=== PATIENT | female | born 1965 | race Caucasian/White ===

== ENCOUNTER 2023-08-26 23:19 | Emergency (ER) | payer OTHER, SELFPAY ==
[2023-08-26 23:30] VITALS: BP 124/81
--- NOTE | 2023-08-26 23:44 | ED.GENMED ---
History of Present Illness
General
Chief Complaint: Allergic Reaction
Source: patient and spouse
Exam Limitations: none
Time Seen by Provider: 08/26/23 23:35
Nursing documentation reviewed up to this point in time: agreed with
Travel History
Have you had any contact with someone who has COVID-19?: No
Do you have any symptoms of coronavirus? Fever > 100 degrees, chills, cough, shortness of breath, sore throat, loss of taste or smell, muscle aches, or headache?: No
History of Present Illness
History of Present Illness:
58-year-old female with past medical history of migraines, GERD who presents to the emergency department accompanied by her for evaluation of possible allergic reaction. Patient reports that tonight at around 10 PM she was eating some
dessert�she says it was a peanut butter cake from [employer]�and a few minutes after finishing the cake she started to feel sensation of tingling in her tongue, sensation of swelling in her throat and she felt the need to consistently cough
or clear her throat. She says she started to notice that she was flushed in the face and she had nausea. She says that she was concerned that this was an allergic reaction and she took some Benadryl and decided to come to the emergency room to be
assessed. She says her symptoms have slightly improved but she still has sensation of throat swelling on arrival here. She no longer has any pruritus. She denies any vomiting despite feeling nauseated. She denies any shortness of breath or
wheezing. She denies any other complaints. She denies any history of prior allergies including to peanuts and says she has had peanuts multiple times in the past. She does report that she has had skin reactions to certain shampoos or skin
products in the past but never systemic allergic reaction.
Past History
Past History
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 Had a gamut of tests all neg. Had vestibular
rehab [id number]. 'It took about a year to feel normal again.' Still with residual right neck pain radiating to right arm needing injections and on Gabapentin 300 mg TID. Is followed by Dr. Huffman, neuro q 6 mos.), GERD (hasn't been bothering her
lately.), Psychiatric (period of anxiety needing Lorazepam [id number].), Other (propranolol also helps migraines, gets one a month, takes Tylenol. Had headache this a.m. and took Tylenol 1000 mg with relief of headache but no change in chest
symptoms.) and Other (had pneumonia once)
Social History
Tobacco: Non-smoker
Alcohol: None
Drug: None
Personal:
Living: with family
Employment: Not employed
Review of Systems
Review of Systems
All Other Systems: ROS reviewed and negative except as documented in HPI and ROS
Constitutional: Denies fever
EENT: Reports other (Sensation of throat swelling)
Respiratory: Reports cough; Denies trouble breathing
Cardiac: Denies chest pain or palpitations
ABD/GI: Reports nausea; Denies abdominal pain, vomiting or diarrhea
: Denies flank pain
Musculoskeletal: Denies neck pain or back pain
Skin: Reports other (Flushed)
Neurological: Denies dizzy or headache
Phy Exam
Physical Exam
Physical Exam:
General: Awake, alert, oriented x3; anxious but no acute distress
Head: Normocephalic, atraumatic; face is slightly flushed with splotches of erythema
Eyes: Conjunctiva normal, pupils equal round and reactive to light bilaterally
Throat: Airway intact, handling secretions, no swelling of the tongue or uvula, no stridor
Neck: Trachea midline, supple without meningismus
Lungs: Clear to auscultation bilaterally, no wheezing, rales, rhonchi
Heart: Regular rate and rhythm, no murmurs, gallops, or rubs
Abd: Soft, non distended, nontender
Neuro: Cranial nerves grossly intact, speech fluid
Skin: Face is flushed but no hives noted on the rest of her skin
Extremities: No edema in extremities, equal pulses in all extremities
Scores
Heart Failure Risk
Heart Failure Risk Score: Not Applicable
Heart Score for Chest Pain Patients
STEMI patient?: Not applicable
Withdrawal Assessment of Alcohol
Withdrawal Assessment Completed?: Not applicable
Course
Orders/Labs/Results
Orders:
Orders
08/26/23 23:36
EPINEPHrine PF [Adrenalin] 0.3 mg IM NOW STA
Famotidine [Pepcid] 20 mg IV NOW STA
MethylPREDNISolone PF [Solu-Medrol Pf] 125 mg IV NOW STA
08/26/23 23:58
Complete Blood Count/With Diff Urgent
Comprehensive Metabolic Panel Urgent
08/27/23 00:52
CT Head W/o Iv Contrast Urgent
Comment:
Reason For Exam: severe occipital headache
08/27/23 00:54
0.9% Sodium Chloride 500 ml [Nss] 500 ml IV BOLUS
Acetaminophen [Tylenol] 1,000 mg PO NOW STA
Diphenhydramine [Benadryl] 25 mg IV NOW STA
Metoclopramide [Reglan] 10 mg IV NOW STA
Abnormal Lab Results
08/26/23
23:58
MCH 32.6 H pg
(27.0-31.0)
BUN 18 H mg/dl
(7-17)
Glucose 115 H mg/dl
(70-99)
08/26/23 23:58
08/26/23 23:58
Vital Signs
Initial and Last Documented VS:
Initial Vital Signs
Temp Pulse Resp BP Pulse Ox
36.7 C 77 18 124/81 99
08/26/23 23:30 08/26/23 23:30 08/26/23 23:30 08/26/23 23:30 08/26/23 23:30
Last Documented Vital Signs
Temp Pulse Resp BP Pulse Ox
36.7 C 80 16 109/65 92
08/26/23 23:30 08/27/23 02:00 08/27/23 02:00 08/27/23 02:00 08/27/23 02:00
MDM/Problems Addressed
Differential Diagnosis Includes:
Anaphylaxis, angioedema, GERD
MDM/Problems Addressed:
58-year-old female presents for evaluation of possible allergic reaction�her chief complaint is sensation of throat tightness and sensation that she needs to constantly clear her throat. She has also had some flushing in her face and some nausea.
No hives. No vomiting. No abdominal cramping. No wheezing or shortness of breath. She has no prior history of allergies. Her vital signs are normal here. Exam as above. She took Benadryl prehospital and has some slight improvement but is done
persistent symptoms. Given sensation of throat swelling will give dose of IM epinephrine will also add some Pepcid and IV steroid. Will monitor here closely and reassess after the above.
Clinical reassessment symptoms resolved after ED treatment as above. No longer has any tightness in the throat or sensation of need to clear her throat. Facial flushing resolved. Will continue to monitor for any rebound symptoms here.
On reassessing the patient she tells me that she stood up to go to the bathroom and had acute onset of severe occipital headache. She says that she is starting to feel nauseated from it. She says that she has had migraines in the past but never
this intense and this sudden. On rechecking her vital signs her blood pressure is increased now to 160s systolic in the 110s. She has no focal neurologic deficits. Will send for CT head to rule out hemorrhage. Treat symptomatically.
Headache improved with ED treatment. CT head negative for acute pathology on my review awaiting final urology report. Patient 4 hours removed from ingestion�from allergic perspective stable for discharge with EpiPen and short course of steroids,
lathe sander referral. Will wait for final radiology report on CT head suspect that this was migraine or possibly side effect of epinephrine.
*Pulse Oximetry
Patient hypoxic: no
*Critical Care Note
Total Time (30-74mins, 75-104mins- exclusive of procedures): Not Applicable
Data Reviewed
Review of Other/Old Records Reveals: Labs and Records
Source: patient and spouse
ED Attending Note
-
Portions of this chart may have been created with voice recognition software.� Occasional wrong word or��sound alike� substitutions may have occurred due to the inherent limitations of voice recognition software.
Discharge Plan
Departure
Patient with high blood pressure during this ER visit?: No
Discharge Problem:
Allergic reaction
Instructions: Allergic Reaction ED
Prescriptions:
New
epinephrine [EpiPen 2-Baldomero] 0.3 mg/0.3 mL auto-injector
0.3 mg IM ONCE Qty: 2 0RF
prednisone 50 mg tablet
50 mg PO DAILY Qty: 4 0RF
No Action
propranolol 60 MG capsule,extended release 24 hr
60 mg PO QPM
gabapentin 300 MG capsule
300 mg PO TID
pantoprazole [Protonix] [address] for susp in packet
40 mg PO DAILY
acetaminophen [Tylenol Extra Strength] 500 MG tablet
1,000 mg PO Q6HPRN PRN (Reason: pain)
Patient Comments:
Pt took today only
folic acid 1 MG tablet
1 mg PO DAILY
Referrals:
Carmella Hemphill MD [Active] - Call in 1-3 days for appt ([facility])
Activity Restrictions/Additional Instructions:
Thank you for visiting the Emergency Department at [facility].
1. Please schedule a follow up appointment as directed. Call first thing tomorrow morning to make an appointment.
2. If indicated, please take your medications as instructed and indicated on discharge paperwork.
3. If any of your symptoms do not improve, or persist, or become more severe within 6-12 hours, please return to the emergency department for further care.
4. Please return to the emergency department if you develop a headache, neck pain/stiffness, fever greater than 100.4F, chest pain, shortness of breath, persistent nausea, vomiting, slurred speech, difficulty walking, numbness/tingling, weakness,
signs of infection or any other symptoms that are worrisome to you.
Please call [phone] if you have any questions.
Interventions
Interventions:
*Risk Screen - Suicide Last Done: 08/26/23 23:55
*General Assessment Last Done: 08/26/23 23:55
*Neglect/Abuse Screening Last Done: 08/26/23 23:55
ED- Cardiac Assessment Last Done: 08/26/23 23:55
ED- Pulmonary Assessment Last Done: 08/26/23 23:55
ED-Skin Assessment Last Done: 08/26/23 23:55
Discharge Date and Time
Print Language: [id number]
[2023-08-26] MEDS: ADRENALIN 0.299999999999999989 MG IM (23:45)
[2023-08-26] MEDS: PEPCID 20 MG IV (23:52)
[2023-08-26] MEDS: SOLU-MEDROL PF 125 MG IV (23:53)
[2023-08-26 23:54] VITALS: BMI 22.7
[2023-08-26 23:57] VITALS: BP 111/81
[2023-08-27] VITALS: BP 114/77
[2023-08-27 00:10] LABS: % Basophils 0.9 % (0-2); % Eosinophils 1.4 % (0-6); % Immature Granulocytes 0.2 % (0-0.5); % Lymphocytes 37.2 % (20.5-51.1); % Monocytes 6.5 % (1.7-9.3); % Neutrophils 53.8 % (42.2-75.2); Absolute Basophils 0.1 10^3/uL (0-0.2); Absolute Eosinophils 0.1 10^3/uL (0-0.7); Absolute Lymphocytes 2.4 10^3/uL (1.2-3.4); Absolute Monocytes 0.4 10^3/uL (0.1-0.6); Absolute Neutrophils 3.5 10^3/uL (1.4-6.5); Hematocrit 40.4 % (37.0-47.0); Hemoglobin 13.9 g/dL (12.0-16.0); Mean Corp Hgb Conc. 34.4 g/dL (33.0-37.0); Mean Corpuscular Hgb 32.6 pg (27.0-31.0); Mean Corpuscular Volume 94.8 fL (81.0-99.0); Mean Platelet Volume 10.1 fL (7.4-10.4); Nucleated Red Blood Cells % 0 %; Platelet Count 216 10^3/uL (130-400); Red Blood Cell Count 4.26 10^6/uL (4.20-5.40); Red Cell Dist. Width 12.6 % (11.5-14.5); White Blood Cell Count 6.5 10^3/uL (4.8-10.8)
[2023-08-27 00:23] LABS: ALT (SGPT) 10 U/L (0-35); AST (SGOT) 23 U/L (14-36); Albumin 4.3 g/dl (3.5-5.0); Alkaline Phosphatase 57 U/L (38-126); Blood Urea Nitrogen 18 mg/dl (7-17); Calcium 9.3 mg/dl (8.4-10.2); Carbon Dioxide 27 mmol/L (22-30); Chloride 105 mmol/L (98-107); Estimated Creatinine Clearance 63 ml/min; Glucose 115 mg/dl (70-99); Potassium 4.2 mmol/L (3.5-5.1); Sodium 136 mmol/L (135-145); Total Bilirubin 0.3 mg/dl (0.2-1.3); Total Protein 7.2 g/dl (6.3-8.2); eGFR > 60.00
[2023-08-27 00:47] VITALS: BP 164/85
[2023-08-27 01:00] VITALS: BP 144/79
[2023-08-27] MEDS: REGLAN 10 MG IV (01:14)
[2023-08-27] MEDS: TYLENOL 1000 MG PO (01:14)
[2023-08-27] MEDS: BENADRYL 25 MG IV (01:18)
[2023-08-27] MEDS: NSS 500 IV (01:19)
[2023-08-27 02:00] VITALS: BP 109/65
[2023-08-27 03:01] VITALS: BP 94/58
== END 2023-08-27 03:18 | disposition home or self-care (01) ==
LOC: EMR 23:19
PROVIDERS: EMERGENCY PHYSICIAN Emergency Medicine; FAMILY PHYSICIAN Family Medicine
DX: T78.40XA Allergy, unspecified, initial encounter (principal); R23.2 Flushing; R11.0 Nausea; R20.2 Paresthesia of skin; R51.9 Headache, unspecified; R22.1 Localized swelling, mass and lump, neck; R05.9 Cough, unspecified; F41.9 Anxiety disorder, unspecified; K21.9 Gastro-esophageal reflux disease without esophagitis; M35.00 Sjogren syndrome, unspecified; Z87.01 Personal history of pneumonia (recurrent); Z88.5 Allergy status to narcotic agent
CPT/HCPCS: 99284; 96374; 96375 ×3; 96361; 96372; 70450; 80053; 85025

== ENCOUNTER 2024-10-25 06:12 | Day surgery (SDC) | payer OTHER, SELFPAY ==
[2024-10-25 07:47] VITALS: BMI 22.0
[2024-10-25 07:52] VITALS: BMI 22.0
[2024-10-25 07:53] VITALS: BP 109/73
[2024-10-25 09:30] VITALS: BP 92/62
[2024-10-25 09:41] VITALS: BP 94/58
[2024-10-25 09:54] VITALS: BP 96/67
== END 2024-10-25 10:08 | disposition home or self-care (01) ==
LOC: SDS 06:12
PROVIDERS: ATTENDING PHYSICIAN Internal Medicine
DX: Z12.11 Encounter for screening for malignant neoplasm of colon (principal); D12.3 Benign neoplasm of transverse colon; D12.4 Benign neoplasm of descending colon; K57.30 Diverticulosis of large intestine without perforation or abscess without bleeding; K64.9 Unspecified hemorrhoids; R63.4 Abnormal weight loss; Z86.0101 Personal history of adenomatous and serrated colon polyps
CPT/HCPCS: 45385; 45380; 88305

== ENCOUNTER → 2024-11-29 17:45 | Outpatient (REF) | payer OTHER, SELFPAY | LOC: WDC 17:45 | PROVIDERS: ATTENDING PHYSICIAN Family Medicine | DX: Z12.31 Encounter for screening mammogram for malignant neoplasm of breast (principal) | CPT/HCPCS: 77063; 77067 ==

== ENCOUNTER 2024-12-04 06:10 | Day surgery (SDC) | payer OTHER, SELFPAY ==
[2024-12-04 08:21] VITALS: BMI 19.5
[2024-12-04 08:22] VITALS: BMI 19.5
[2024-12-04 08:24] VITALS: BP 116/78
[2024-12-04 09:45] VITALS: BP 99/63
[2024-12-04 10:00] VITALS: BP 105/66
[2024-12-04 10:15] VITALS: BP 102/58
== END 2024-12-04 09:50 | disposition home or self-care (01) ==
LOC: GI 06:10
PROVIDERS: ATTENDING PHYSICIAN Internal Medicine
DX: R63.4 Abnormal weight loss (principal); K44.9 Diaphragmatic hernia without obstruction or gangrene; K22.89 Other specified disease of esophagus; K31.89 Other diseases of stomach and duodenum; I87.8 Other specified disorders of veins
CPT/HCPCS: 43239; 88305; 88342